=== PATIENT | female | born 1945 | race Caucasian/White ===

== ENCOUNTER 2016-12-23 18:13 | Inpatient (IN) | payer MEDICARE ==
[2016-12-23] VITALS (9 sets, daily range): BP systolic 113–148; BP diastolic 61–83; PULSE 85–108; RESP 20–44; O2SAT 81–100
[~2016-12-23] VITALS: Ht 160 cm; Wt 55.0 kg
[~2016-12-23 18:13] MED LIST: CALC-235 PO; DILT300C25 PO; DOCU-41 PO; FERR325C PO; FLEC100T2 PO; KEN25CR EXT; OXYB5TAB35 PO; OXYC5TAB72 PO; POLY17PO6 PO; TAMS0.4C29 PO; WARF5TAB7 PO; [UNRECOGNIZED DRUG - CODE] PO
[2016-12-23] MEDS ORDERED: Albuterol 2.5 mg/3 mL Inhalation Solution NEB ONE ×2 (18:25→22:25)
[2016-12-23] MEDS ORDERED: Albuterol-Ipratropium 3 mL Inhalation Solution NEB ONE (18:25)
--- NOTE | 2016-12-23 18:49 | ABG ---
DateTimeAnalyzed 18:45:00 -_ pH ____7.381 - 7.350 7.450 pCO2 ___46.2__ -mmHg 35.0 45.0 pO2 ___56.3__ -mmHg 69.0 116 HCO3- ___26.8__ -mmol/L 22.0 26.0 ABE ____1.8__ -mmol/L -2.0 2.0 tHb ___10.9__ -g/dL O2Hb ___86.8__ -% COHb ____1.9__ -% MetHb ____1.0__ -% sO2 ___89.4__ -% FIO2 ___28.0__ -% Drawn By LT - Date/Time Notified____ 18:49:00 -_ Notified By LT - Notified Whom ___DR. SLACK - B 763 -mmHg tO2 ___13.3__ -Vol% Catracho test _Positive -
[2016-12-23 18:50] LABS: BASOPHILS % (AUTO) 0.5 % (0-3); EOSINOPHILS % (AUTO) 0.3 % (0-5); MONOCYTES % (AUTO) 11.8 % (4-12); Mean Corpuscular Hemoglobin 26.3 pg (27.0-35.0); NEUTROPHILS % (AUTO) 65.3 % (40-74); Platelet Count 245 bil/L (150-400)
[2016-12-23 19:11] LABS: Magnesium 2.2 mg/dL (1.6-2.6)
--- NOTE | 2016-12-23 19:29 | DRSVH ---
PROCEDURE: X-RAY CHEST ONE VIEW, PORTABLE ([id number]) INDICATIONS: dyspnea TECHNIQUE: One view of the chest was acquired. COMPARISON: [facility], CR, XR CHEST 2VW, 07/26/2016, 14:47. [facility], C R, XR CHEST 1VW (PORTABLE), 02/08/2016, 18:48. FINDINGS: Surgical changes and devices: There is a cardiac pacemaker with lead expected position. There are bonilla rgical clips in the left breast. Lungs and pleura: Bilateral chronic interstitial prominence compatible with chronic interstitial kishor g disease or chronic CHF. There is more confluent left basilar opacity suggests superimposed right ba silar pneumonia. No pleural effusions or pneumothorax. Mediastinum: Mediastinal contours appear normal. Heart size is normal. Bones and chest wall: No suspicious bony lesions. Overlying soft tissues appear unremarkable. IMPRESSION: 1. Chronic interstitial lung disease or chronic CHF. 2. Possible superimposed right lower lobe pneumonia. Dictated by: Eliza Hayden M.D. on 12/23/2016 at 19:21 Approved by: Eliza Hayden M.D. on 12/23/2016 at 19:27
[2016-12-23 19:34] LABS: TROPONIN T < 0.010 ug/L (0.0-0.011)
--- NOTE | 2016-12-23 20:32 | ED.REPORT ---
HPI-Dyspnea / Wheezing Date of Service Dec 23, 2016 ED Provider: Zion Phelan MD The patient is a 71 year old female w/ a hx of COPD, CHF, HTN, valvular heart disease, and breast cancer who presents to the ED via EMS due to shortness of breath for the past week. She came to the ED today bc she "just couldn't breathe." She is on 2L O2 at home. O2 sats at 81% in triage. Pt negl use her nebulizer medication at home today. She currently denies chest pain, cold symptoms, and fever. The pt quit smoking one week ago. Dr. Lipscomb at [facility] is her PCP. She was admitted 08/24/16 for a pulmonary function test. Impression at the time was moderate obstructive airway disease without evidence for immediate response to inhaled bronchodilators. There is a severe degere of underlying emphysema. Nursing Notes Stated Complaint: DIFFICULTY BREATHING Chief Complaint: Respiratory Distress Nursing Notes Reviewed: Yes Allergies: Coded Allergies: metoprolol (Verified Allergy, Severe, Rash,Itching,, 12/23/16) Penicillins (Verified Allergy, Unknown, UNKNOWN, 12/23/16) Scheduled Calcium Carbonate/Vitamin D3 (Calcium 250+D Tablet) 1 Each Tablet 1 EACH PO DAILY Diltiazem ER (Cartia XT) 300 Mg Cap.er.24h 300 MG PO DAILY Ferrous Sulfate (Iron) 325 Mg Capsule.er 325 MG PO DAILY Flecainide Acetate (Flecainide Acetate) 100 Mg Tablet 100 MG PO Q12 Oxybutynin Chloride ER (Ditropan XL) 5 Mg Tab.er.24 10 MG PO DAILY Polyethylene Glycol 3350 (Miralax) 17 Gm Powd.pack 17 GM PO DAILY Risedronate (Actonel) 5 Mg Tablet 5 MG PO DAILY Take on empty stomach, remain upright for 1 hour after taking. Tamsulosin ER (Tamsulosin ER) 0.4 Mg Cap.er.24h 0.4 MG PO HS Triamcinolone Acet (Triamcinolone Acetonide Cream) 1 Applic/0.25 Gm Cr 1 APPLIC EXT BID Warfarin Sodium (Warfarin Sodium) 5 Mg Tablet 5 MG PO DAILY TAKE 5MG PO SATURDAY,,, SAT, AND SATURDAY Warfarin Sodium (Warfarin Sodium) 5 Mg Tablet 2.5 MG PO DAILY TAKE 2.5MG TWICE A WEEK ON SAT AND SATURDAY Scheduled PRN Docusate Sodium (Colace) 100 Mg Capsule 100 MG PO Q2DAY PRN PRN For Constipation oxyCODONE (oxyCODONE) 5 Mg Tablet 5-10 MG PO Q4H PRN PRN For Pain General Time Seen by MD: 18:22 Chief Complaint Shortness of breath Hx Obtained From: Patient Arrived By: Ambulance Sudden in Onset?: Yes Onset Occurred: Just prior to arrival Symptom Duration: Since onset Severity: Current: No pain currently Recent Healthcare: No recent doctor visit, No recent hospitalization Past Medical History Past Medical History CHF HTN Valvular heart disease COPD Breast cancer Rheumatoid Arthritis Reports: COPD, Cancer, Congestive heart failure, Hypertension Past Surgical History Hysterectomy Tonsillectomy Hemorrhoidectomy Reports: Hysterectomy, Tonsillectomy Reports: Pacemaker insertion Smoking History Current Every Day Smoker Social History Alcohol Use: Denies alcohol use Drug Use: Denies drug use Ambulatory Status Independent Review of Systems Respiratory: Reports: Non-productive cough, Shortness of breath Complete sys rev & neg: except as marked. Physical Exam Initial Vital Signs Vital Signs (First) Date Time Temp Pulse Resp B/P Pulse Ox O2 Delivery O2 Flow Rate FiO2 12/23/16 18:15 36.7 108 32 148/73 81 Room Air 12/23/16 18:58 2 Initial VS: Reviewed Extremities: Vascular intact, No swelling Psychiatric: Mood/affect normal General/Constitutional: Awake Neck: Atraumatic, Supple, Non-tender Respiratory / Chest: No rales Wheezing / Retractions: Positive: Wheezing mild decreased air movement throughout Cardiovascular: Heart rate NL, Regular rhythm, Heart sounds NL Interpretation & Diagnostics Interpretation & Diagnostics: ANGIOGRAPHY CT IMPRESSION: 1. No evidence for acute central pulmonary embolism. 2. Right lower lobe airspace disease consistent with pneumonia. 3. Severe centrilobular emphysema. 4. Suspect pulmonary fibrosis. 5. Mediastinal and right hilar lymphadenopathy. This finding is nonspecific and requires clinical correlation and follow up. 6. Exophytic nodules in left kidney. Recommend ultrasound to further characterize the anterior exophytic nodule which demonstrates higher CT density than simple cyst. 7. Small hiatal hernia. Dictated by: Eliza Hayden M.D. on 12/23/2016 at 20:31 Approved by: Eliza Hayden M.D. on 12/23/2016 at 20:45 Lab Results Interpretation Result Diagram: 3/19/182912/23/161829 Test 12/23/16 18:30 12/23/16 20:49 White Blood Count 9.8th/mm3 (3.8-10.1) Red Blood Count 4.38mil/mm3 (3.90-5.20) Hemoglobin 11.5g/dL (12.0-15.6) Hematocrit 36.8% (35.0-46.0) Mean Corpuscular Volume 84.0fL (81-100) Mean Corpuscular Hemoglobin 26.3pg (27.0-35.0) Mean Corpuscular Hemoglobin Concent 31.3% (32.0-37.0) Red Cell Distribution Width 18.2% (12.3-15.4) Platelet Count 245bil/L (150-400) Neutrophils (%) (Auto) 65.3% (40-74) Lymphocytes (%) (Auto) 21.6% (14-46) Monocytes (%) (Auto) 11.8% (4-12) Eosinophils (%) (Auto) 0.3% (0-5) Basophils (%) (Auto) 0.5% (0-3) Prothrombin Time 11.4sec (8.1-12.5) Prothromb Time International Ratio 1.06ratio D-Dimer 1.9mg/L (<0.50) Sodium Level 139mEq/L (134-144) Potassium Level 3.7mEq/L (3.5-5.2) Chloride Level 99mEq/L (97-108) Carbon Dioxide Level 24mmol/L (18-29) Blood Urea Nitrogen 17mg/dL (8-27) Creatinine 0.89mg/dL (0.57-1.00) Estimat Glomerular Filtration Rate 89mL/min (>59) Glucose Level 156mg/dL (60-99) Calcium Level 8.1mg/dL (8.5-10.1) Magnesium Level 2.2mg/dL (1.6-2.6) Total Bilirubin 0.6mg/dL (0.0-1.2) Aspartate Amino Transf (AST/SGOT) 20U/L (0-50) Alanine Aminotransferase (ALT/SGPT) 13U/L (0-32) Alkaline Phosphatase 93U/L (25-165) Troponin T < 0.010ug/L (0.0-0.011) Pro-B-Type Natriuretic Peptide 1010pg/mL (0-301) Total Protein 7.8g/dL (6.4-8.4) Albumin 3.2g/dL (3.4-5.0) Procalcitonin 0.15ng/mL (0.00-0.08) Hold Stephen Top Tube Received (Received) Lactic Acid Level 1.6mmol/L (0.4-2.0) Lab Results Interpretation: BLOOD GAS REPORT: pH....7.381 pCO2....46 pO2....56.3 cHCO3....26.8 cBase....37.0 ECG Interpretation Time: 18:30 Interpreted by: ED physician Normal ECG Interpretation: Normal rate (99), No acute ischemic changes X-Ray Chest Interpretation Chest Xray Interpretation: IMPRESSION: 1. Chronic interstitial lung disease or chronic CHF. 2. Possible superimposed right lower lobe pneumonia. Dictated by: Eliza Hayden M.D. on 12/23/2016 at 19:21 Approved by: Eliza Hayden M.D. on 12/23/2016 at 19:27 View: Portable Interpretation / Wet Read by: Interpret - Radiologist Re-Eval/Medical Decision Med Decision/Clinical Course 71 year old female on home O2 with dyspnea and hypoxemia. Unclear what her baseline O2 sats are, pt states not on constant home O2. Improved on oxygen, given duoneb and albuterol. Mild wheeze so steroids not started. Blood cultures obtained, IV levaquin started- no recent hospitalization. will admit to hospitalist Re-Evaluation/Progress : Time of Eval: 21:00 Patient Status: Mild relief Re-Evaluation/Progress Note: Pt rechecked. Informed of results of chest x-ray and angiography CT, diagnosis of dyspnea and pneumonia, and need for admission. Pt understands and agrees with plan. All questions addressed. Consultation : Referral / Consult Name: Fay Gongora DO Consulted With: Hospitalist Call Returned at: 20:50 Principal Developer: Accepts admit Note: Dr. Gongora agrees with plan. PCC in-patient. Counseled Regarding: Diagnosis, Lab results, Need for admission Discharge & Departure Impression: Primary Impression: Dyspnea Dyspnea type: unspecified Qualified Code: R06.00 - Dyspnea, unspecified Additional Impression: Pneumonia Pneumonia type: due to unspecified organism Laterality: unspecified laterality Lung location: unspecified part of lung Qualified Code: B99.9 - Unspecified infectious disease Disposition: ADMITTED TO HOSPITAL Discharge Condition All VS Reviewed: Yes Condition: Stable Referrals: [facility] Residency Clinic (PCP) Scribe Attestation Portion of this note were transcribed by Stephanie Ying. I, Dr. Phelan, personally performed the history, physical exam, and medical decision-making: I reviewed and confirmed the accuracy for the information in the transcribed note. Signed by: wolf Rodríguez, 12/23/16 2100 copies to: [facility] Residency [facility] Zion Phelan MD Dec 23, 2016 20:32 Stephanie Ying Dec 23, 2016 20:39
[2016-12-23] MEDS ORDERED: levoFLOXacin Inj 500 MG in IV Premix 1 EACH IV ONE (20:35)
--- NOTE | 2016-12-23 20:47 | DRSVH ---
PROCEDURE: CT ANGIO CHEST PULMONARY EMBOLISM ([id number]) INDICATIONS: dyspnea and hypoxemia TECHNIQUE: After the administration of intravenous contrast, 2 mm thick sections acquired from the pulmonary api rodri to the posterior costophrenic angles. 3-dimensional maximum intensity projection (MIP) coronal a nd sagittal reformats were then acquired through the thorax. For radiation dose reduction, the follo wing was used: automated exposure control, adjustment of mA and/or kV according to patient size. COMPARISON: [facility], CT, KUB - CT (PNL), 04/17/2008, 15:07. [facility], C T, CT PELVIS W CON, 10/17/2015, 15:43. [facility], CT, CT CHEST HIGH RESOLUTION, 08/24/20 16, 12:38. [facility], CR, XR CHEST 1VW (PORTABLE), 12/23/2016, 18:22. FINDINGS: Image quality: Excellent. Pulmonary arteries: Pulmonary arteries are normal in size, and demonstrate no intraluminal filling d efects to suggest central pulmonary embolism. Lungs and pleura: Severe centrilobular emphysema. There is right basilar airspace infiltrate and cons olidation consistent with pneumonia. Bilateral subpleural septal thickening and honeycombing suggests pulmonary fibrosis. No pleural effusions or pneumothorax. Central and peripheral airways are paten t. Mediastinum: Heart size is normal, without pericardial effusion. Enlarged mediastinal and right nery r lymph nodes are present. The largest lymph node is paretracheal measuring 1.6 x 1.9 cm. Thoracic a estefania is normal in caliber and enhancement. Esophagus is normal in caliber. There is a small hiatal h ernia. Bones and chest wall: No suspicious bony lesions. Ribs and thoracic spine appear intact throughout. Thyroid gland is normal. No axillary or supraclavicular adenopathy. Abdomen: Multiple exophytic nodules are seen in left kidney. The nodule in the posterior cortex demon strates CT density 5.5 HU, consistent with a cyst simple cyst. The nodule adjacent to the anterior co rtex demonstrates CT density 38 HU, which is higher than simple cyst. IMPRESSION: 1. No evidence for acute central pulmonary embolism. 2. Right lower lobe airspace disease consistent with pneumonia. 3. Severe centrilobular emphysema. 4. Suspect pulmonary fibrosis. 5. Mediastinal and right hilar lymphadenopathy. This finding is nonspecific and requires clinical co rrelation and follow up. 6. Exophytic nodules in left kidney. Recommend ultrasound to further characterize the anterior exophy tic nodule which demonstrates higher CT density than simple cyst. 7. Small hiatal hernia. Dictated by: Eliza Hayden M.D. on 12/23/2016 at 20:31 Approved by: Eliza Hayden M.D. on 12/23/2016 at 20:45
[2016-12-23] MEDS ORDERED: Alum-Mag Hydrox-Simeth 30 mL Suspension PO PRN (21:35)
[2016-12-23] MEDS ORDERED: Albuterol-Ipratropium 3 mL Inhalation Solution NEB PRN (21:35)
[2016-12-23] MEDS ORDERED: Polyethylene Glycol (PEG) 17 Gm Powder PO PRN (21:35)
[2016-12-23] MEDS ORDERED: HYDROcodone-APAP 5-325 mg Tablet PO PRN (21:35)
[2016-12-23] MEDS ORDERED: MethylprednisoLONE Sodium Succinate 62.5 mg/mL 2 mL Inj IVPUSH ONE (21:45)
[2016-12-23 22:09] LABS: INR 1.06 ratio
--- NOTE | 2016-12-23 23:01 | PCM.HPMED ---
Subjective Date of Service Dec 23, 2016 Primary Provider: Admitting Physician: Primary Care Physician: CARTER Johnson Residency Attending Physician: Admit Status: From the Emergency Department, [facility] Telemetry Chief Complaint: "I can't breathe." History of Present Illness: Ms. 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 She presents to the ED via EMS complaining of shortness of breath for 1.5 weeks. Patient reports that she could not breathe even on the O2 and her SOB has been progressively worsened. She admits to intermittent use of O2 at home and has been using an inhaler as needed with no symptom relief. She does not recall the name of the inhaler. Patient also complains of increasing loose cough, runny nose, mild/dull frontal headache, and decrease appetite. She states that there is sputum production but "I can't get it out." Otherwise, she denies chest pain, fever, chills, nausea, vomiting, diarrhea, or swelling. No sick contact recently. She got both the flu and pneumonia shots this year. Patient admits to the use of 2 pillows at night. She stopped smoking about 1 week ago. In the ED, she had O2 sat of 81% at room aire, but was afebrile. RR 32 and pulse 108. ABG with pH 7.38, pCO2 46.2, and pO2 56. EKG normal. Normal WBC, but procalcitonin 0.15. BNP 1010. D-dimer 1.[address] angio was done and ruled out pulmonary embolism. However, both CXR and CT are consistent with COPD and possible superimposed right lower lobe pneumonia. Of note, patient had a pulmonary function test on 08/24/16. Impression at the time was moderate obstructive airway disease without evidence for immediate response to inhaled bronchodilators. There is a severe degree of underlying emphysema. Patient states that she has not been admitted to the hospital for COPD for a few years. The last hospitalization was in 02/2016 for a broken hip. She has been using a walker to get around, but can ambulate independently without it. Review of Systems: Pertinent positives as noted in history of present illness. All other systems were reviewed and are negative. Allergies Coded Allergies: metoprolol (Verified Allergy, Severe, Rash,Itching,, 12/23/16) Penicillins (Verified Allergy, Unknown, UNKNOWN, 12/23/16) Home Medications Per [employer]: Medication Sig Comment calcium citrate-vitamin D3 200 mg calcium-250 unit tablet take one tab daily. Cardizem CD 300 mg capsule,extended release take 1 capsule by oral route every day . docusate sodium 100 mg capsule take 1 capsule by oral route every 2 days as needed for constipation flecainide 100 mg tablet take 1 tablet by oral route every 12 hours . hydroxychloroquine 200 mg tablet take 1 tablet by oral route every day iron ER 325 mg (65 mg iron) capsule,extended release take 1 tablet by oral route every day . Miralax 17 gram/dose Oral Powder take (17G) by oral route every day mixed with 8 oz. water, juice, soda, coffee or tea pt states uses PRN oxybutynin chloride ER 5 mg tablet,extended release 24 hr take 2 tablet by oral route every day oxycodone 5 mg tablet take 1 - 2 tablet by ORAL route every 4 hours as needed for pain risedronate 5 mg tablet take 1 tablet by oral route every day in the morning, at least 30 min before first food, beverage, or medication of day tamsulosin 0.4 mg capsule take 1 capsule by oral route every bedtime for bladder triamcinolone acetonide 0.1 % topical cream apply by topical route 2 times every day a thin layer to the affected area(s) for 2 wks then twice a wk as needed warfarin 5 mg tablet TAKE 1 TABLET BY MOUTH 5 DAYS/WEEK (SAT, SAT, , SAT, & SAT) & TAKE 1/2 TAB TWICE/WEEK (SAT & SAT) or as directed by coumadin clinic . Zyrtec 10 mg tablet take 1 tablet by oral route every day PMH 1. 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 2. Hypertension. 3. Paroxysmal atrial fibrillation with tachybrady syndrome requiring pacemaker implantation. 4. Rheumatoid arthritis. 5. Sleep apnea (noncompliant with CPAP therapy.) 6. Chronic iron-deficient anemia. 7. Congestive heart failure/tachycardia-induced cardiomyopathy. 8. Chronic anticoagulation with Coumadin. 9. Squamous cell carcinoma and Basal cell carcinoma of nose Surgical History Total abdominal hysterectomy, cholecystectomy, pacemaker implantation. Family History Denies significant family history. Reports that her mother in her sleep at 62yo. Unknown cause. Social History Hx Alcohol Use: No Hx Substance Use: No Hx Tobacco Use: Yes (1PPD/40 YEARS, was on 6-10 cigarettes/day as of last week. Quit 1 week ago.) Smoking Status: Current Every Day Smoker Living Arrangement: with Family (with son and [id number]. Local resident. ) Additional Information Uses 2L of O2 at baseline. Ambulate independently and uses a walker occasionally. Patient has a wheelchair at home since she broke her hip in 2015. Exam Vital Signs Vital Sign - Last Date Time Temp Pulse Resp B/P Pulse Ox O2 Delivery O2 Flow Rate FiO2 12/23/16 20:35 96 28 116/83 93 Nasal Cannula 2 12/23/16 18:15 36.7 Exam General: Chronically-ill appearance, thin, in respiratory distress with conversational dyspnea HEENT: Normocephalic, atraumatic. External ears without defect. Pupils equal, round, and reactive to light and accommodation. Anicteric sclerae, moist conjunctivae, and no lid lag. Moist oral mucosa. Neck: Supple with full range of motion. No jugular venous distension. No bruits. No lymphadenopathy or thyromegaly. Cardiovascular: Difficult to auscultate due to loud coarse lung sound. Regular rate and rhythm with no murmurs, rubs, or gallops appreciated Pulmonary: Decreased air movement throughout, coarse lung sound with moderate wheezing. Abdomen: Bowel tones present. Soft, nontender, nondistended. No hepatosplenomegaly or masses appreciated. Extremities: No clubbing, cyanosis, edema, or lymphadenopathy appreciated. Skin: Normal temperature, turgor, and texture; no rash, ulcers, or subcutaneous nodules appreciated. Neurological: Alert and oriented x 3. Cranial nerves grossly intact. Normal muscle strength and tone. Sensory function within normal limits. Lymph: no cervical or supraclavicular lymphadenopathy Psychiatric: Normal mood and affect. Alert and oriented to person, place, and time. Lab and Diagnostics Result Diagram: 12/23/16182912/23/161829 X-Rays, CTs and MRIs PROCEDURE: X-RAY CHEST ONE VIEW, PORTABLE IMPRESSION: 1. Chronic interstitial lung disease or chronic CHF. 2. Possible superimposed right lower lobe pneumonia. Dictated by: Eliza Hayden M.D. on 12/23/2016 at 19:21 Approved by: Eliza Hayden M.D. on 12/23/2016 at 19:27 PROCEDURE: CT ANGIO CHEST PULMONARY EMBOLISM IMPRESSION: 1. No evidence for acute central pulmonary embolism. 2. Right lower lobe airspace disease consistent with pneumonia. 3. Severe centrilobular emphysema. 4. Suspect pulmonary fibrosis. 5. Mediastinal and right hilar lymphadenopathy. This finding is nonspecific and requires clinical correlation and follow up. 6. Exophytic nodules in left kidney. Recommend ultrasound to further characterize the anterior exophytic nodule which demonstrates higher CT density than simple cyst. 7. Small hiatal hernia. Dictated by: Eliza Hayden M.D. on 12/23/2016 at 20:31 Approved by: Eliza Hayden M.D. on 12/23/2016 at 20:45 12-lead ECG Normal ECG Interpretation: Normal rate (99), No acute ischemic changes Assessment & Plan 71-year-old female with complex medical history including, but not limited to, COPD/emphysema secondary to lifelong history of ongoing smoking, paroxysmal atrial fibrillation with tachybrady syndrome requiring a pacemaker implantation , hypertension, rheumatoid arthritis, and congestive heart failure who presents to the ED via EMS complaining of shortness of breath. 1. Hypoxemia and hypercapnic respiratory failure, acute, present on admission, active. - Likely secondary to acute COPD exacerbation and possible right lower lobe pneumonia. - ABG showed increased pCO2 (46.2) and decreased pO2 (56). - Continue O2 supplementation to keep SpO2 90-93% - Treat the underlying cause(s) 2. Acute on chronic obstructive pulmonary disease/emphysema, present on admission, active. - Moderate-acute exacerbation with tachypnea, increased dyspnea and increased sputum volume. - Solu-Medro 125mg IV Q6H x 72 hours - Start Duo-Neb Q4H and Albuterol inhaler PRN - Start antibiotics as #3 3. Possible community-acquired pneumonia, acute, present on admission,active. - Both CXR and CT angio showed possible superimposed right lower lobe pneumonia. - Blood and sputum cultures pending. - Screen for Legionella and Strep Ag. Screen for MRSA. History of positive MRSA in the past. - Procalcitonin elevated at 0.15. Continue to trend. - Patient was given a dose of Levaquin in the ED. Will change to Ceftriaxone and Doxycycline for broader coverage. 4. Paroxysmal atrial fibrillation, chronic, stable. - current EKG shows sinus rhythm. Will place Telemetry. - continue outpatient medication to maintain rate control and sinus rhythm. - Cardizem 300 mg daily and Flecainide 100 mg bid - Last INR check was 2.0 on 12/17/16. - Check INR now and resume Warfarin dose per pharmacy. 5. Hypertension, chronic, stable. - elevation at admission likely related to respiratory distress. - Patient is not on antihypertensive medication as outpatient. - Will continue to monitor vital signs. 6. Congestive heart failure/tachycardia-induced cardiomyopathy, chronic, presume stable. - no signs of decompensation. - No recent Echo. Check Echo in the AM. 7. Rheumatoid arthritis, chronic, stable. - Hydroxychloroquine 200 mg tablet listed at home medication, but patient reports to stop taking it awhile ago. - No recent flare-up. 8. Nicotine Dependence with ongoing smoking - will provide Nicotine patch on patient's request 9. Abnormal CT, present on admission, unknown chronicity. - CT angio today 12/23/2016 showed Exophytic nodules in left kidney. Recommend ultrasound to further characterize the anterior exophytic nodule which demonstrates higher CT density than simple cyst. - Will defer to day to order an U/S or follow up as out patient. 10. CODE STATUS: FULL CODE per the patient. - Acetaminophen as needed for mild pain/fever/headache - Bowel regimen as needed - Antiemetic as needed Patient is admitted under inpatient status with expected length of stay greater than 2 midnights due to severity of presenting symptoms, risk of adverse event, and complexity of treatment plan. Pain Evaluation: Adequate Pain Control VTE Prophylaxis: Theraputic Anticoag with Warfarin, SCDs Resuscitation Status: CPR: Attempt Resuscitation Attending Statement The patient was seen and examined together with house staff on 12/24/2016 and I agree with the history, exam and plan as outlined in the note above. Mukesh Asif DO Dec 23, 2016 21:03 Fay Gongora DO Dec 24, 2016 01:17
--- NOTE | 2016-12-23 23:02 | NUR ---
Admission Patient admitted to [facility] 2028 at 2145. On arrival to floor patient's respiratory rate noted to be 44 with audible wheezes from across the room; SpO2 93% on 3L via nasal cannula. Patient with congested sounding cough, although she reports inability to produce any sputum; "It comes up to my throat and I can't get it out and it goes back down." States she has been coughing like this for the last week, with accompanying poor appetite. Dr. Gongora to bedside to assess; RT in room with nebulizer treatments. Patient with respiratory rate of 40 after second nebulizer dose. Up with standby assist to commode; small amount of dark colored, cloudy, odoriferous urine produced. Sample sent to lab. Continue close monitoring.
[2016-12-23 23:08] LABS: APPEARANCE,URINE SLIGHTLY CLOUDY (CLEAR,HAZY); COLOR,URINE DARK YELLOW (YELLOW)
[2016-12-23 23:09] LABS: OCCULT BLOOD,URINE SMALL (NEGATIVE)
[2016-12-23] MEDS ORDERED: 0.9% Sodium Chloride 250 ML ONE (23:14)
[2016-12-23] MEDS: cefTRIAXone Inj 2,000 MG in Dextrose 5% Minibag Plus 50 ML IV SCH (23:19)
[2016-12-24] VITALS (17 sets, daily range): BP systolic 112–127; BP diastolic 57–68; PULSE 8–124; RESP 20–36; O2SAT 90–94
[2016-12-24] MEDS ORDERED: RISEDRONATE 5 MG PO SCH
[2016-12-24] MEDS ORDERED: Albuterol 2.5 mg/3 mL Inhalation Solution NEB ONE (00:10)
[2016-12-24] MEDS: Albuterol-Ipratropium 3 mL Inhalation Solution NEB SCH ×6 (00:21→19:37)
[2016-12-24] MEDS ORDERED: Albuterol-Ipratropium 3 mL Inhalation Solution NEB SCH (00:30)
[2016-12-24] MEDS: Albuterol 2.5 mg/3 mL Inhalation Solution NEB PRN ×2 (01:54→06:02)
[2016-12-24] MEDS: MethylprednisoLONE Sodium Succinate 62.5 mg/mL 2 mL Inj IVPUSH SCH ×4 (02:39→20:32)
[2016-12-24 03:50] LABS: Mean Corpuscular Hemoglobin 26.5 pg (27.0-35.0); Mean Corpuscular Volume 83.5 fL (81-100); Platelet Count 264 bil/L (150-400)
[2016-12-24 04:09] LABS: BASOPHILS % (AUTO) 0.3 % (0-3); EOSINOPHILS % (AUTO) 0 % (0-5); MONOCYTES % (AUTO) 3.4 % (4-12); NEUTROPHILS % (AUTO) 89.7 % (40-74)
[2016-12-24] MEDS: Diltiazem CD 300 mg ER24 Capsule PO SCH ×2 (06:31)
[2016-12-24] MEDS: Doxycycline Inj 100 MG in Dextrose 5% Minibag Plus 100 ML IV SCH ×2 (08:04→20:32)
[2016-12-24] MEDS: Tolterodine ER 4 mg ER24 Capsule PO SCH (08:07)
[2016-12-24 08:23] LABS: INR 1.05 ratio
--- NOTE | 2016-12-24 11:51 | NUR ---
Evaluation completed. Please go to "Notes" then click on "Assessments and Notes" (bottom left corner of screen). Then select appropriate discipline tab on top of screen.
--- NOTE | 2016-12-24 17:43 | DRSVH ---
[facility] [address] [place] [address] Echocardiogram Report Name: JANET CRUZ Silvestre e: 12/24/2016 Height: 63 in Hospital Exam Location: [facility] Weight: 122 lb Gender: Female BSA: 1.6 m2 : 1945 Age: 71 yrs BP: 115/61 mmHg Reason For Study: Dyspnea Ordering Physician: HOSPITALIST [facility] Performed By: Gaby Rosenthal Referring Physician: CARLOS ALBERTO WHITLOCK Interpretation Summary 1. Normal left ventricular size, wall thickness and systolic function with an estimated EF of 60-65% 2. Normal right ventricular size and systolic function 3. No evidence for valvular pathology Compared to the previous study, no significant change Procedure: A two-dimensional transthoracic echocardiogram with color flow and Doppler was performed. The study quality was technically adequate. Comparison is made with the echocardiogram of 01/06/2015. The patient has a paced rhythm. Left Ventricle: The left ventricle is normal in size. There is normal left ventricular wall thickness. The ejection fraction is estimated to be 60-65%. No obvious wall motion abnormalities. Assessment of diastolic parameters indicates a relaxation abnormality of the left ventricle, consistent with normal filling pressures. Right Ventricle: The right ventricle is normal in size and function. There is a pacemaker lead in the right ventricle. Atria: Both atria are normal in size. Pacer lead in RA. There is no Doppler evidence for an interatrial shunt. Mitral Valve: The mitral valve leaflets appear thickened, but open well. There is no mitral regurgitation noted. Aortic Valve: The aortic valve is trileaflet. The aortic valve opens well. The aortic valve is slightly calcified. There is no aortic regurgitation. Tricuspid Valve: The tricuspid valve leaflets are thin and pliable. There is trace tricuspid regurgitation. The right ventricular systolic pressure is estimated at 48 mmHg assuming a right atrial pressure of 8 mm Hg. Pulmonic Valve: The pulmonic valve is not well visualized. There is no pulmonic valvular regurgitation. Great Vessels: The aortic root is normal size. The ascending aorta is normal in size. The aortic arch is normal in size. The pulmonary artery is not well visualized, but is probably normal size. The IVC is dilated (diameter is greater than 2.1 cm) yet it collapses greater than 50% with a sniff. This suggests a right atrial pressure of 8 mm Hg. Pericardium/ Pleura There is no pericardial effusion. There is no pleural effusion. MMode/2D Measurements & Calculations LVIDd: 4.6 cm LA dimension: 4.0 cm RA long axis AoV Opening LVIDs: 3.0 cm FS: 34.9 % LA A2 area: 17.3 cm RA area Ao root diam IVSd: 0.90 cm LA A4 area: 16.8 cm LVPWd: 0.93 cm LA length (vol) : 12.9 cm asc Aorta Diam RA vol LA vol: 48.1 ml : 27.4 ml Ao Arch Diam (Prox LA vol index RA Trans): 2.8 cm : 17.5 mm2 IVC diam: 2.1 cm LV merritt. diameter/BSA LV sys. diameter/BSA RVD1 (basal) RVD2 (mid): 2.0 cm (cm/m^2): 2.9 (cm/m^2): 1.9 Doppler Measurements & Calculations Ao V2 max MV E max jonathan MV E/A: 1.8 TR max jonathan : 189.2 cm/sec : 152.2 cm/sec Med Peak E' Jonathan : 314.4 cm/sec Ao max PG MV A max jonathan TR max PG : 14.3 mmHg : 82.6 cm/sec E/E' med: 13.1 : 39.5 mmHg Ao mean PG MV P1/2t: 51.5 msec Lat Peak E' Jonathan PA V2 max : 7.5 mmHg : 164.6 cm/sec E/E' lat: 12.3 PA mean PG E/e' average: 12.7 MV A dur: 0.13 sec PA Accel Time : 0.14 sec MV dec time MV P1/2t max jonathan Ao V2 mean PA V2 mean : 0.17 sec : 128.2 cm/sec : 114.2 cm/sec Ao V2 VTI: 31.9 cm MVA(P1/2t): 4.3 cm2 Reading Physician:05:42 PM
--- NOTE | 2016-12-24 18:31 | NUR ---
Cardiac/Respiratory finishing technician reported pt having increased bursts of SVT into 180s from shift change to approximately 0830. Pt baseline rate was SR 120s. Pt was administered her flecainide at approximately 0800. Tele for the rest of day demonstrated a decrease in overall heart rate with HR SR 90-100s, with infrequent episodes of SVT to a rate of 120-140s with pt activity. Pt states she is able to cough more effectively after breathing treatments today. But she is still having hard time moving secretions. States that her breathing is much better, no dyspnea at rest.
--- NOTE | 2016-12-24 20:39 | NUR ---
Flomax Pt declined HS dose of Flomax. States she's stopped taking at home as it "hasn't been doing me any good. Encouraged her to discuss this with .
--- NOTE | 2016-12-24 21:01 | PCM.PNMED ---
Subjective Date of Service Dec 24, 2016 Subjective overnight: Tachypnea improved overnight no acute events otherwise noted Today: Patient states that her breathing feels much improved and she attributes this to the medication she has been started on. The patient states that she has had a cough which she feels too weak to bring up any sputum. The patient denies any ongoing fevers or chills. She states that she uses chronic oxygen at home at approximately 2 L but it is infrequent she also uses her albuterol inhaler. Exam Vital Signs Vital Sign - Last Date Time Temp Pulse Resp B/P Pulse Ox O2 Delivery O2 Flow Rate FiO2 12/24/16 06:03 118 32 90 Nasal Cannula 2.00 12/24/16 04:21 115/61 12/24/16 02:42 36.8 Intake and Output 12/23/16 12/23/16 12/24/16 Cumulative From/Thru 15:00 23:00 07:00 12/23/16 18:15 - 12/24/16 06:42 Intake Total 633 ml 633 ml Output Total 50 ml 50 ml Balance 583 ml 583 ml Intake Oral 540 ml 540 ml IV Total 93 ml 93 ml Output Urine Total 50 ml 50 ml # Voids 1 1 Exam General: Chronically-ill appearance, thin, in respiratory distress with mild conversational dyspnea\ Eyes: Pupils equal round and reactive to light, anicteric sclera, noninjected conjunctiva HEENT: Normocephalic, atraumatic. External ears without defect. Moist oral mucosa with no central cyanosis Neck: Supple with full range of motion. No jugular venous distension. No bruits. No lymphadenopathy or thyromegaly. Cardiovascular: Distant heart sounds with Regular rate and rhythm with no murmurs, rubs, or gallops appreciated Pulmonary: Decreased air movement throughout significantly worse than right middle and lower lobes, coarse lung sound with moderate wheezing throughout all lung toscano. Abdomen: Bowel tones present. Soft, nontender, nondistended. No hepatosplenomegaly or masses appreciated. Extremities: No clubbing, cyanosis, edema, or lymphadenopathy appreciated. Skin: Normal temperature, turgor, and texture; no rash, ulcers, or subcutaneous nodules appreciated. Neurological: Alert and oriented x 3. Cranial nerves grossly intact. Normal muscle strength and tone. Sensory function within normal limits. Lymph: no cervical or supraclavicular lymphadenopathy Psychiatric: Normal mood and affect. Alert and oriented to person, place, and time. : No Javier in place Lab and Diagnostics Result Diagram: 12/24/16 03412/24/16 034 X-Rays, CTs and MRIs PROCEDURE: X-RAY CHEST ONE VIEW, PORTABLE IMPRESSION: 1. Chronic interstitial lung disease or chronic CHF. 2. Possible superimposed right lower lobe pneumonia. Dictated by: Eliza Hayden M.D. on 12/23/2016 at 19:21 Approved by: Eliza Hayden M.D. on 12/23/2016 at 19:27 PROCEDURE: CT ANGIO CHEST PULMONARY EMBOLISM IMPRESSION: 1. No evidence for acute central pulmonary embolism. 2. Right lower lobe airspace disease consistent with pneumonia. 3. Severe centrilobular emphysema. 4. Suspect pulmonary fibrosis. 5. Mediastinal and right hilar lymphadenopathy. This finding is nonspecific and requires clinical correlation and follow up. 6. Exophytic nodules in left kidney. Recommend ultrasound to further characterize the anterior exophytic nodule which demonstrates higher CT density than simple cyst. 7. Small hiatal hernia. Dictated by: Eliza Hayden M.D. on 12/23/2016 at 20:31 Approved by: Eliza Hayden M.D. on 12/23/2016 at 20:45 12-lead ECG Normal ECG Interpretation: Normal rate (99), No acute ischemic changes Additional Diagnostics Echocardiogram Report Interpretation Summary 1. Normal left ventricular size, wall thickness and systolic function with an estimated EF of 60-65% 2. Normal right ventricular size and systolic function 3. 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 Hospital day 1 1. Hypoxemia and hypercapnic respiratory failure, acute, present on admission, active. - Likely secondary to acute COPD exacerbation and possible right lower lobe pneumonia. - ABG showed increased pCO2 (46.2) and decreased pO2 (56). - Continue O2 supplementation to keep SpO2 90-93% - Treat the underlying cause(s) 2. Acute on chronic obstructive pulmonary disease/emphysema, present on admission, active. - Moderate-acute exacerbation with tachypnea, increased dyspnea and increased sputum volume. - Solu-Medro 125mg IV Q6H x 72 hours - Start Duo-Neb Q4H and Albuterol inhaler PRN - Start antibiotics as #3 3. Possible community-acquired pneumonia, acute, present on admission,active. - Both CXR and CT angio showed possible superimposed right lower lobe pneumonia. - Blood and sputum cultures pending. - Viral nasal PCR ordered and pending - Screen for Legionella and Strep Ag both negative. Screen for MRSA negative. - Procalcitonin elevated at 0.15. Continue to trend. - Patient was given a dose of Levaquin in the ED. changed to Ceftriaxone and admission - discontinue Doxycycline and initiate azithromycin for atypical coverage. 4. Paroxysmal atrial fibrillation, chronic, stable. - current EKG shows sinus rhythm. Will place Telemetry. - continue outpatient medication to maintain rate control and sinus rhythm. - Cardizem 300 mg daily and Flecainide 100 mg bid - Last INR check was 2.0 on 12/17/16, repeat INRs drawn today show non- therapeutic - Patient states that she is not taking warfarin at least the last 3 days - Check INR now and resume Warfarin dose per pharmacy. 5. Hypertension, chronic, stable. Present admission - elevation at admission likely related to respiratory distress. - Patient is not on antihypertensive medication as outpatient. - Will continue to monitor vital signs. 6. Congestive heart failure/tachycardia-induced cardiomyopathy, chronic, presume stable. - no signs of decompensation. - Echo performed today shows EF of normal 7. Rheumatoid arthritis, chronic, stable. - Hydroxychloroquine 200 mg tablet listed at home medication, but patient reports to stop taking it awhile ago. - No recent flare-up. 8. Nicotine Dependence with ongoing smoking - will provide Nicotine patch on patient's request 9. Abnormal CT, present on admission, unknown chronicity. - CT angio today 12/23/2016 showed Exophytic nodules in left kidney. Recommend ultrasound to further characterize the anterior exophytic nodule which demonstrates higher CT density than simple cyst. - Will defer to day to order an U/S or follow up as out patient. 10. CODE STATUS: FULL CODE per the patient. - Acetaminophen as needed for mild pain/fever/headache - Bowel regimen as needed - Antiemetic as needed Disposition: Patient will likely remain inpatient for her next 2 days discharge requiring physical therapy evaluation for placement. VTE Prophylaxis: Theraputic Anticoag with Warfarin, SCDs Resuscitation Status: CPR: Attempt Resuscitation Attending Statement The patient was seen and examined together with Dr. Martin on 12/24/2016 and I agree with the history, exam and plan as outlined in the note above. . Hernan Martin DO Dec 24, 2016 07:50 Tin Dawson MD Dec 29, 2016 07:48
--- NOTE | 2016-12-24 21:10 | NUR ---
Swab Viral PCR swab sent. Still need sputum sample. Pt states she hasn't been able to cough anything up yet.
[2016-12-24] MEDS: cefTRIAXone Inj 2,000 MG in Dextrose 5% Minibag Plus 50 ML IV SCH (22:45)
[2016-12-25] VITALS (8 sets, daily range): BP systolic 105–121; BP diastolic 62–67; PULSE 85–98; RESP 16–24; O2SAT 91–94
[2016-12-25] MEDS: Albuterol-Ipratropium 3 mL Inhalation Solution NEB SCH ×4 (00:15→12:08)
[2016-12-25] MEDS: MethylprednisoLONE Sodium Succinate 62.5 mg/mL 2 mL Inj IVPUSH SCH ×3 (03:30→09:05)
[2016-12-25 03:51] LABS: BASOPHILS % (AUTO) 0.1 % (0-3); EOSINOPHILS % (AUTO) 0 % (0-5); MONOCYTES % (AUTO) 4.7 % (4-12); Mean Corpuscular Hemoglobin 25.9 pg (27.0-35.0); Mean Corpuscular Volume 82.3 fL (81-100); NEUTROPHILS % (AUTO) 88.7 % (40-74); Platelet Count 269 bil/L (150-400)
[2016-12-25 04:01] LABS: INR 1.16 ratio
--- NOTE | 2016-12-25 05:21 | NUR ---
WBC WBC increased from 7.8 to 24.9. MD notified. No new orders at this time. Pt VSS and lactic acid has decreased.
[2016-12-25] MEDS: Tolterodine ER 4 mg ER24 Capsule PO SCH (08:30)
[2016-12-25] MEDS: Diltiazem CD 300 mg ER24 Capsule PO SCH (09:06)
[2016-12-25] MEDS ORDERED: PRE20 PO (12:00)
[2016-12-25] MEDS ORDERED: ATRINH INH (12:00)
[2016-12-25] MEDS ORDERED: CEFD300C3 PO (12:00)
[2016-12-25] MEDS ORDERED: SACC250C PO (12:00)
[2016-12-25] MEDS ORDERED: ZIT250 PO (12:00)
--- NOTE | 2016-12-25 12:05 | PCM.DIMED ---
Hernan Martin DO 12/25/16 1205: Discharge Instructions Date of Service Dec 25, 2016 Dates of Hospitalization Dec 23, 2016 at 21:26 Discharge Diagnosis Discharge Diagnosis 1. Hypoxemia and hypercapnic respiratory failure 2. Acute on chronic obstructive pulmonary disease/emphysema 3. Possible community-acquired pneumonia 4. Paroxysmal atrial fibrillation 5. Hypertension 6. Congestive heart failure/tachycardia-induced cardiomyopathy 7. Rheumatoid arthritis 8. Nicotine Dependence 9. Abnormal CT showed Exophytic nodules in left kidney Medication Instructions Included his prescriptions for prednisone, azithromycin, Cefdinir. Please take all these medications to completion as directed. You have also been given a prescription for probiotic please take this medication as you are on several antibiotics which will kill off for a predisposing you to possible infectious diarrhea You have been given a prescription for an ipratropium inhaler please take this medication twice daily for the next month. Also included his a prescription for refill on her albuterol inhaler please take this medication for shortness of breath as directed. Please continue to take all of her regular home medications as directed by her primary care provider. Diet Low fat, Low Sodium Activity No restrictions Call your provider Fever or Chills, Shortness of breath, Bleeding, Chest pain, Vomitting, Excessive diarrhea, Weakness (unilateral) Patient Instructions Please take all of her medications as directed. If you feel like her symptoms are not improving or if you are worsening at all with new return of fevers and chills worsening cough please be evaluated by a medical professional. Follow-up plan Please follow up with her primary care provider later this week. The appointment has already been scheduled. Follow-up Provider: Omayra Willis DO Follow-up with PCP in: 1 week Tin Dawson MD 12/29/16 0749: Discharge Instructions Attending's Statement The patient was seen and examined together with Dr. Martin on 12/25/2016 and I agree with the history, exam and plan as outlined in the note above. . Hernan Martin DO Dec 25, 2016 12:05 Tin Dawson MD Dec 29, 2016 07:49
--- NOTE | 2016-12-25 12:05 | NUR ---
Social Work Note: Initial Assessment/Discharge Data& Assessment: Per pt is medically ready for discharge. SW met with pt at bedside to discuss discharge planning and assess for any unmet needs. Chiara Rg is a 71 year old female admitted on 12/23/2016 for dyspnea and pneumonia. Per pt is medically improved and ready to discharge home via POV. PT has cleared pt to go home as she is back to her baseline. Pt has [employer] Medicare insurance coverage and [facility]. Pt lives in [place] with her son and daughter in law. Pt is independent at baseline with all ADL's. Pt broke her hip last year and so she does own a cane and a walker but does not need them at this time. Pt has had a HH and SNF hx from her hip fracture last year but does not remember which company or facility. Pt does not have VA or LTC insurance. Pt provided with DPOA/Advance Directive paperwork to review and complete when possible. Pt son transporting her home today. Pt denies any other needs. No other discharge needs identified. Plan: Per pt is medically ready to discharge home via POV. Pt denies any other needs. No other discharge needs identified. CALEB Amos Addendum: 12/25/16 at 1210 by ONEYDA LEDEZMA Amended: Links added.
[2016-12-25] MEDS ORDERED: ALBU8.5H2 INHALATION (12:06)
--- NOTE | 2016-12-25 13:45 | PCM.PNMED ---
Subjective Date of Service Dec 25, 2016 Subjective overnight: WBC increased from 7.8 to 24.9 consistent with possible infection as well as steroid burst. Patient remained afebrile. No acute events otherwise noted. Today: Patient states that she is ready to go home. She has a son at home who is capable of taking care of her. She understands that she needs to get 2 separate antibiotics as well as a prescription for steroids and prescriptions for inhalers. The plan will be to go home with probiotics. Exam Vital Signs Vital Sign - Last Date Time Temp Pulse Resp B/P Pulse Ox O2 Delivery O2 Flow Rate FiO2 12/25/16 07:54 94 94 Nasal Cannula 2.00 12/25/16 03:32 16 121/67 12/24/16 22:47 36.8 Intake and Output 12/24/16 12/24/16 12/25/16 Cumulative From/Thru 15:00 23:00 07:00 12/23/16 18:15 - 12/25/16 06:11 Intake Total 1118 ml 360 ml 2111 ml Output Total 500 ml 300 ml 850 ml Balance 618 ml 60 ml 1261 ml Intake Oral 980 ml 200 ml 1720 ml IV Total 138 ml 160 ml 391 ml Output Urine Total 500 ml 300 ml 850 ml # Voids 1 # Bowel Movements 0 0 Exam General: Chronically-ill appearance, thin, in respiratory distress with mild conversational dyspnea\ Eyes: Pupils equal round and reactive to light, anicteric sclera, noninjected conjunctiva HEENT: Normocephalic, atraumatic. External ears without defect. Moist oral mucosa with no central cyanosis Neck: Supple with full range of motion. No jugular venous distension. No bruits. No lymphadenopathy or thyromegaly. Cardiovascular: Distant heart sounds with Regular rate and rhythm with no murmurs, rubs, or gallops appreciated Pulmonary: Decreased air movement throughout significantly worse than right middle and lower lobes, improved breath sounds mild coarse breath sounds noted right axillary and left base with moderate mild intermittent wheezing throughout all lung toscano. Significantly improved from day prior Abdomen: Bowel tones present. Soft, nontender, nondistended. No hepatosplenomegaly or masses appreciated. Extremities: No clubbing, cyanosis, edema, or lymphadenopathy appreciated. Skin: Normal temperature, turgor, and texture; no rash, ulcers, or subcutaneous nodules appreciated. Neurological: Alert and oriented x 3. Cranial nerves grossly intact. Normal muscle strength and tone. Sensory function within normal limits. Lymph: no cervical or supraclavicular lymphadenopathy Psychiatric: Normal mood and affect. Alert and oriented to person, place, and time. : No Javier in place Lab and Diagnostics Result Diagram: 12/25/1633412/25/16334 X-Rays, CTs and MRIs PROCEDURE: X-RAY CHEST ONE VIEW, PORTABLE IMPRESSION: 1. Chronic interstitial lung disease or chronic CHF. 2. Possible superimposed right lower lobe pneumonia. Dictated by: Eliza Hayden M.D. on 12/23/2016 at 19:21 Approved by: Eliza Hayden M.D. on 12/23/2016 at 19:27 PROCEDURE: CT ANGIO CHEST PULMONARY EMBOLISM IMPRESSION: 1. No evidence for acute central pulmonary embolism. 2. Right lower lobe airspace disease consistent with pneumonia. 3. Severe centrilobular emphysema. 4. Suspect pulmonary fibrosis. 5. Mediastinal and right hilar lymphadenopathy. This finding is nonspecific and requires clinical correlation and follow up. 6. Exophytic nodules in left kidney. Recommend ultrasound to further characterize the anterior exophytic nodule which demonstrates higher CT density than simple cyst. 7. Small hiatal hernia. Dictated by: Eliza Hayden M.D. on 12/23/2016 at 20:31 Approved by: Eliza Hayden M.D. on 12/23/2016 at 20:45 12-lead ECG Normal ECG Interpretation: Normal rate (99), No acute ischemic changes Additional Diagnostics Echocardiogram Report Interpretation Summary 1. Normal left ventricular size, wall thickness and systolic function with an estimated EF of 60-65% 2. Normal right ventricular size and systolic function 3. 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 Hospital day 1 1. Hypoxemia and hypercapnic respiratory failure, acute, present on admission, active. - Likely secondary to acute COPD exacerbation and possible right lower lobe pneumonia. - ABG showed increased pCO2 (46.2) and decreased pO2 (56). - Continue O2 supplementation to keep SpO2 90-93% - Treat the underlying cause(s) 2. Acute on chronic obstructive pulmonary disease/emphysema, present on admission, active. - Moderate-acute exacerbation with tachypnea, increased dyspnea and increased sputum volume. - Solu-Medro 125mg IV Q6H x 72 hours - Start Duo-Neb Q4H and Albuterol inhaler PRN - Start antibiotics as #3 - Patient discharged with prednisone 40 mg for 5 days - Patient discharged with prescription for ipratropium inhaler scheduled twice daily as well as albuterol inhaler for when necessary shortness of breath 3. Possible community-acquired pneumonia, acute, present on admission,active. - Both CXR and CT angio showed possible superimposed right lower lobe pneumonia. - Blood and sputum cultures pending. - Viral nasal PCR ordered and pending - Screen for Legionella and Strep Ag both negative. Screen for MRSA negative. - Procalcitonin elevated at 0.15. Continue to trend. - Patient was given a dose of Levaquin in the ED. changed to Ceftriaxone and admission - discontinue Doxycycline and initiate azithromycin for atypical coverage. - To be discharged on Omnicef for an additional 5 days, and azithromycin for an additional 5 days 4. Paroxysmal atrial fibrillation, chronic, stable. - current EKG shows sinus rhythm. Will place Telemetry. - continue outpatient medication to maintain rate control and sinus rhythm. - Cardizem 300 mg daily and Flecainide 100 mg bid - Last INR check was 2.0 on 12/17/16, repeat INRs drawn today show non- therapeutic - Patient states that she is not taking warfarin at least the last 3 days - Check INR now and resume Warfarin dose as an outpatient 5. Hypertension, chronic, stable. Present admission - elevation at admission likely related to respiratory distress. - Patient is not on antihypertensive medication as outpatient. - Will continue to monitor vital signs. 6. Congestive heart failure/tachycardia-induced cardiomyopathy, chronic, presume stable. - no signs of decompensation. - Echo performed today shows EF of normal 7. Rheumatoid arthritis, chronic, stable. - Hydroxychloroquine 200 mg tablet listed at home medication, but patient reports to stop taking it awhile ago. - No recent flare-up. 8. Nicotine Dependence with ongoing smoking - Nicotine patch available on patient's request 9. Abnormal CT, present on admission, unknown chronicity. - CT angio today 12/23/2016 showed Exophytic nodules in left kidney. Recommend ultrasound to further characterize the anterior exophytic nodule which demonstrates higher CT density than simple cyst. - Will defer to day to order an U/S or follow up as out patient. Disposition: Patient to be discharged home today VTE Prophylaxis: Theraputic Anticoag with Warfarin, SCDs Resuscitation Status: CPR: Attempt Resuscitation Attending Statement The patient was seen and examined together with Dr. Martin on 12/25/2016 and I agree with the history, exam and plan as outlined in the note above. . Hernan Martin DO Dec 25, 2016 08:14 Tin Dawson MD Dec 29, 2016 07:49
--- NOTE | 2016-12-25 14:15 | PCM.DC.MED ---
Discharge Summary Date of Service Dec 25, 2016 Dates of Hospitalization Date of Hospital Admission Dec 23, 2016 at 21:26 Date of Discharge: Dec 25, 2016 Providers: Admitting Physician: Fay Gongora DO [facility]: Fay Gongora DO Diagnosis at Time of Discharge Diagnosis at Time of Discharge 1. Hypoxemia and hypercapnic respiratory failure 2. Acute on chronic obstructive pulmonary disease/emphysema 3. Possible community-acquired pneumonia 4. Paroxysmal atrial fibrillation 5. Hypertension 6. Congestive heart failure/tachycardia-induced cardiomyopathy 7. Rheumatoid arthritis 8. Nicotine Dependence 9. Abnormal CT showed Exophytic nodules in left kidney Procedures XRay, CTs & MRIs PROCEDURE: X-RAY CHEST ONE VIEW, PORTABLE IMPRESSION: 1. Chronic interstitial lung disease or chronic CHF. 2. Possible superimposed right lower lobe pneumonia. Dictated by: Eliza Hayden M.D. on 12/23/2016 at 19:21 Approved by: Eliza Hayden M.D. on 12/23/2016 at 19:27 PROCEDURE: CT ANGIO CHEST PULMONARY EMBOLISM IMPRESSION: 1. No evidence for acute central pulmonary embolism. 2. Right lower lobe airspace disease consistent with pneumonia. 3. Severe centrilobular emphysema. 4. Suspect pulmonary fibrosis. 5. Mediastinal and right hilar lymphadenopathy. This finding is nonspecific and requires clinical correlation and follow up. 6. Exophytic nodules in left kidney. Recommend ultrasound to further characterize the anterior exophytic nodule which demonstrates higher CT density than simple cyst. 7. Small hiatal hernia. Dictated by: Eliza Hayden M.D. on 12/23/2016 at 20:31 Approved by: Eliza Hayden M.D. on 12/23/2016 at 20:45 ECG 12 Lead Normal ECG Interpretation: Normal rate (99), No acute ischemic changes Other Diagnostics Echocardiogram Report Interpretation Summary 1. Normal left ventricular size, wall thickness and systolic function with an estimated EF of 60-65% 2. Normal right ventricular size and systolic function 3. No evidence for valvular pathology Compared to the previous study, no significant change Reading Physician:05:42 PM Brief History From the H&P of by Mukesh Asif DO "Ms. 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 She presents to the ED via EMS complaining of shortness of breath for 1.5 weeks. Patient reports that she could not breathe even on the O2 and her SOB has been progressively worsened. She admits to intermittent use of O2 at home and has been using an inhaler as needed with no symptom relief. She does not recall the name of the inhaler. Patient also complains of increasing loose cough, runny nose, mild/dull frontal headache, and decrease appetite. She states that there is sputum production but "I can't get it out." Otherwise, she denies chest pain, fever, chills, nausea, vomiting, diarrhea, or swelling. No sick contact recently. She got both the flu and pneumonia shots this year. Patient admits to the use of 2 pillows at night. She stopped smoking about 1 week ago. In the ED, she had O2 sat of 81% at room aire, but was afebrile. RR 32 and pulse 108. ABG with pH 7.38, pCO2 46.2, and pO2 56. EKG normal. Normal WBC, but procalcitonin 0.15. BNP 1010. D-dimer 1.[address] angio was done and ruled out pulmonary embolism. However, both CXR and CT are consistent with COPD and possible superimposed right lower lobe pneumonia. Of note, patient had a pulmonary function test on 08/24/16. Impression at the time was moderate obstructive airway disease without evidence for immediate response to inhaled bronchodilators. There is a severe degree of underlying emphysema. Patient states that she has not been admitted to the hospital for COPD for a few years. The last hospitalization was in 02/2016 for a broken hip. She has been using a walker to get around, but can ambulate independently without it." Hospital Course 1. Hypoxemia and hypercapnic respiratory failure, acute, present on admission, active. - Likely secondary to acute COPD exacerbation and possible right lower lobe pneumonia. - ABG showed increased pCO2 (46.2) and decreased pO2 (56). - Continue O2 supplementation to keep SpO2 90-93% - Treat the underlying cause(s) 2. Acute on chronic obstructive pulmonary disease/emphysema, present on admission, active. - Moderate-acute exacerbation with tachypnea, increased dyspnea and increased sputum volume. - Solu-Medro 125mg IV Q6H x 72 hours - Start Duo-Neb Q4H and Albuterol inhaler PRN - Start antibiotics as #3 - Patient discharged with prednisone 40 mg for 5 days - Patient discharged with prescription for ipratropium inhaler scheduled twice daily as well as albuterol inhaler for when necessary shortness of breath 3. Possible community-acquired pneumonia, acute, present on admission,active. - Both CXR and CT angio showed possible superimposed right lower lobe pneumonia. - Blood and sputum cultures pending. - Viral nasal PCR ordered and pending - Screen for Legionella and Strep Ag both negative. Screen for MRSA negative. - Procalcitonin elevated at 0.15. Continue to trend. - Patient was given a dose of Levaquin in the ED. changed to Ceftriaxone and admission - discontinue Doxycycline and initiate azithromycin for atypical coverage. - To be discharged on Omnicef for an additional 5 days, and azithromycin for an additional 5 days 4. Paroxysmal atrial fibrillation, chronic, stable. - current EKG shows sinus rhythm. Will place Telemetry. - continue outpatient medication to maintain rate control and sinus rhythm. - Cardizem 300 mg daily and Flecainide 100 mg bid - Last INR check was 2.0 on 12/17/16, repeat INRs drawn today show non- therapeutic - Patient states that she is not taking warfarin at least the last 3 days - Check INR now and resume Warfarin dose as an outpatient 5. Hypertension, chronic, stable. Present admission - elevation at admission likely related to respiratory distress. - Patient is not on antihypertensive medication as outpatient. - Will continue to monitor vital signs. 6. Congestive heart failure/tachycardia-induced cardiomyopathy, chronic, presume stable. - no signs of decompensation. - Echo performed today shows EF of normal 7. Rheumatoid arthritis, chronic, stable. - Hydroxychloroquine 200 mg tablet listed at home medication, but patient reports to stop taking it awhile ago. - No recent flare-up. 8. Nicotine Dependence with ongoing smoking - Nicotine patch available on patient's request 9. Abnormal CT, present on admission, unknown chronicity. - CT angio today 12/23/2016 showed Exophytic nodules in left kidney. Recommend ultrasound to further characterize the anterior exophytic nodule which demonstrates higher CT density than simple cyst. - Will defer to day to order an U/S or follow up as out patient. Exam Vital Signs (Last) Date Time Temp Pulse Resp B/P Pulse Ox O2 Delivery O2 Flow Rate FiO2 12/25/16 13:37 36.6 92 18 108/65 94 Nasal Cannula 2.00 Exam General: Chronically-ill appearance, thin, in respiratory distress with mild conversational dyspnea\\ Eyes: Pupils equal round and reactive to light, anicteric sclera, noninjected conjunctiva HEENT: Normocephalic, atraumatic. External ears without defect. Moist oral mucosa with no central cyanosis Neck: Supple with full range of motion. No jugular venous distension. No bruits. No lymphadenopathy or thyromegaly. Cardiovascular: Distant heart sounds with Regular rate and rhythm with no murmurs, rubs, or gallops appreciated Pulmonary: Decreased air movement throughout significantly worse than right middle and lower lobes, improved breath sounds mild coarse breath sounds noted right axillary and left base with moderate mild intermittent wheezing throughout all lung toscano. Significantly improved from day prior Abdomen: Bowel tones present. Soft, nontender, nondistended. No hepatosplenomegaly or masses appreciated. Extremities: No clubbing, cyanosis, edema, or lymphadenopathy appreciated. Skin: Normal temperature, turgor, and texture; no rash, ulcers, or subcutaneous nodules appreciated. Neurological: Alert and oriented x 3. Cranial nerves grossly intact. Normal muscle strength and tone. Sensory function within normal limits. Lymph: no cervical or supraclavicular lymphadenopathy Psychiatric: Normal mood and affect. Alert and oriented to person, place, and time. : No Javier in place Test 12/23/16 18:30 12/23/16 22:50 12/24/16 03:40 12/25/16 03:35 D-Dimer 1.9mg/L (<0.50) Troponin T < 0.010ug/L (0.0-0.011) Pro-B-Type Natriuretic Peptide 1010pg/mL (0-301) Hold Stephen Top Tube Received (Received) Urine Color Dark yellow (YELLOW) Urine Appearance Slightly cloudy Urine pH 5.0 (5.0-8.0) Urine Specific [place] 1.010 (1.003-1.035) Urine Protein 30mg/dL (NEG,TRACE) Urine Glucose (UA) Negativemg/dL (NEGATIVE) Urine Ketones Negativemg/dL (NEGATIVE) Urine Occult Blood Small (NEGATIVE) Urine Nitrite Positive (NEGATIVE) Urine Bilirubin Negative (NEGATIVE) Urine Urobilinogen 2.0mg/dL (NORMAL) Urine Leukocyte Esterase Small (NEGATIVE) Urine RBC 0-2/hpf (0-2) Urine WBC >50/hpf (0-5) Urine Epithelial Cells Few/hpf (NONE-MOD) Urine Crystals None seen (NONE SEEN) Urine Bacteria Many/hpf (NONE-FEW) Urine Hyaline Casts None/lpf (NONE) Urine Granular Casts None seen (NONE SEEN) Urine Waxy Casts None seen (NONE SEEN) Urine Red Blood Cell Casts None seen (NONE SEEN) Urine White Blood Cell Casts None seen (NONE SEEN) Urine Mucus None seen (None Seen) Urine Trichomonas None seen (NONE SEEN) Urine Yeast None (NONE SEEN) Urinalysis Comment None Urine Culture Reflexed Indicated Urine Legionella pneumophilia Ag Negative (Negative) Band Neutrophils % 1% (1-5) Hemoglobin A1c 6.2% (4.8-5.6) Magnesium Level 2.0mg/dL (1.6-2.6) White Blood Count 24.9th/mm3 (3.8-10.1) Red Blood Count 3.90mil/mm3 (3.90-5.20) Hemoglobin 10.1g/dL (12.0-15.6) Hematocrit 32.1% (35.0-46.0) Mean Corpuscular Volume 82.3fL (81-100) Mean Corpuscular Hemoglobin 25.9pg (27.0-35.0) Mean Corpuscular Hemoglobin Concent 31.5% (32.0-37.0) Red Cell Distribution Width 17.9% (12.3-15.4) Platelet Count 269bil/L (150-400) Neutrophils (%) (Auto) 88.7% (40-74) Lymphocytes (%) (Auto) 3.6% (14-46) Monocytes (%) (Auto) 4.7% (4-12) Eosinophils (%) (Auto) 0% (0-5) Basophils (%) (Auto) 0.1% (0-3) Prothrombin Time 12.5sec (8.1-12.5) Prothromb Time International Ratio 1.16ratio Sodium Level 140mEq/L (134-144) Potassium Level 3.6mEq/L (3.5-5.2) Chloride Level 103mEq/L (97-108) Carbon Dioxide Level 23mmol/L (18-29) Blood Urea Nitrogen 26mg/dL (8-27) Creatinine 0.87mg/dL (0.57-1.00) Estimat Glomerular Filtration Rate 91mL/min (>59) Glucose Level 161mg/dL (60-99) Lactic Acid Level 0.8mmol/L (0.4-2.0) Calcium Level 8.4mg/dL (8.5-10.1) Total Bilirubin 0.2mg/dL (0.0-1.2) Aspartate Amino Transf (AST/SGOT) 26U/L (0-50) Alanine Aminotransferase (ALT/SGPT) 15U/L (0-32) Alkaline Phosphatase 95U/L (25-165) Total Protein 7.0g/dL (6.4-8.4) Albumin 2.6g/dL (3.4-5.0) Procalcitonin 0.24ng/mL (0.00-0.08) Thyroid Stimulating Hormone (TSH) 0.280uIU/mL (0.450-4.500) Discharge Medications Discharge Medications Azithromycin (Zithromax) 250 Mg Tablet 500 MG PO DAILY Prescribed by: HERNAN SOLIS DO Calcium Carbonate/Vitamin D3 (Calcium 250+D Tablet) 1 Each Tablet 1 TABLET PO DAILY (Reported) Cefdinir (Cefdinir) 300 Mg Capsule 300 MG PO BID Prescribed by: HERNAN SOLIS DO Diltiazem ER (Cartia XT) 300 Mg Cap.er.24h 300 MG PO DAILY Prescribed by: QUITA QUINONES MD Ferrous Sulfate (Iron) 325 Mg Capsule.er 325 MG PO DAILY Prescribed by: QUITA QUINONES MD Flecainide Acetate (Flecainide Acetate) 100 Mg Tablet 100 MG PO Q12 Prescribed by: QUITA QUINONES MD Ipratropium [place] (Atrovent HFA) 200 Puff/12.9 Gm Inhaler 2 PUFF INH BID Prescribed by: HERNAN SOLIS DO Oxybutynin Chloride ER (Ditropan XL) 5 Mg Tab.er.24 10 MG PO DAILY Prescribed by: QUITA QUINONES MD Prednisone (PredniSONE) 20 Mg Tablet 40 MG PO DAILY Prescribed by: HERNAN SOLIS DO Risedronate (Actonel) 5 Mg Tablet 5 MG PO DAILY (Reported) Take on empty stomach, remain upright for 1 hour after taking. Saccharomyces Boulardii (Florastor) 250 Mg Capsule 250 MG PO BID Prescribed by: HERNAN SOLIS DO Tamsulosin ER (Tamsulosin ER) 0.4 Mg Cap.er.24h 0.4 MG PO HS Prescribed by: QUITA QUINONES MD Triamcinolone Acet (Triamcinolone Acetonide Cream) 1 Applic/0.25 Gm Cr 1 APPLIC EXT BID (Reported) Warfarin Sodium (Warfarin Sodium) 5 Mg Tablet 5 MG PO Q Saturday (Reported) Warfarin Sodium (Warfarin Sodium) 5 Mg Tablet 2.5 MG PO DAILY except Sat ( Reported) As needed Albuterol HFA (Proair HFA) 8.5 Gm Hfa.aer.ad 2 PUFFS INHALATION Q4H PRN PRN For Shortness of Breath Prescribed by: HERNAN SOLIS DO Docusate Sodium (Colace) 100 Mg Capsule 100 MG PO Q2DAY PRN PRN For Constipation (Reported) oxyCODONE (oxyCODONE) 5 Mg Tablet 5-10 MG PO Q4H PRN PRN For Pain Prescribed by: QUITA QUINONES MD Additional med instructions Included his prescriptions for prednisone, azithromycin, Cefdinir. Please take all these medications to completion as directed. You have also been given a prescription for probiotic please take this medication as you are on several antibiotics which will kill off for a predisposing you to possible infectious diarrhea You have been given a prescription for an ipratropium inhaler please take this medication twice daily for the next month. Also included his a prescription for refill on her albuterol inhaler please take this medication for shortness of breath as directed. Please continue to take all of her regular home medications as directed by her primary care provider. Followup Plan Disposition: Home Follow-up plan Please follow up with her primary care provider later this week. The appointment has already been scheduled. Discharge Diet: Low fat, Low Sodium Discharge Activity: No restrictions Patient Instructions Please take all of her medications as directed. If you feel like her symptoms are not improving or if you are worsening at all with new return of fevers and chills worsening cough please be evaluated by a medical professional. Follow-up Provider: Omayra Willis DO Follow-up with PCP in: 1 week Time spent Greater than 30 minutes was spent in preparation of discharge with greater than 50% of that time dedicated to patient counseling and coordination of care. . Attending Statement The patient was seen and examined together with Dr. Solis on 12/25/2016 and I agree with the history, exam and plan as outlined in the note above. . copies to: [facility] Hernan Solis DO Dec 25, 2016 14:15 Tin Dawson MD Dec 29, 2016 07:50
--- NOTE | 2016-12-25 15:41 | NUR ---
Discharge Pt discharged for transportation by her son POV to her home. Pt's IV dc'd intact, telemetry removed and tech notified. Pt's discharge instructions, follow-up appointments and new medications were reviewed. All patient's questions were answered and pt voiced understanding. Pt's belongings were gathered for discharge to be sent home with her. Pt was escorted off unit to her son's vehicle.
== END 2016-12-25 14:22 | disposition home or self-care (01) | DRG 189 ==
LOC: SED 18:13 → PCC 21:26
PROVIDERS: ADMIT Internal Medicine; ATTEND Internal Medicine
PROC: 4A033B1 Measurement of Arterial Pressure, Peripheral, Percutaneous Approach (ICD-10-PCS; principal; 2016-12-23)
DX: J96.01 Acute respiratory failure with hypoxia (principal); J18.9 Pneumonia, unspecified organism; J44.1 Chronic obstructive pulmonary disease with (acute) exacerbation; I42.8 Other cardiomyopathies; J96.02 Acute respiratory failure with hypercapnia; J44.9 Chronic obstructive pulmonary disease, unspecified; I10 Essential (primary) hypertension; I48.0 Paroxysmal atrial fibrillation; M06.9 Rheumatoid arthritis, unspecified; F17.210 Nicotine dependence, cigarettes, uncomplicated; G47.30 Sleep apnea, unspecified; D50.9 Iron deficiency anemia, unspecified; Z88.0 Allergy status to penicillin; Z79.01 Long term (current) use of anticoagulants; Z95.0 Presence of cardiac pacemaker; Z99.81 Dependence on supplemental oxygen; Z79.51 Long term (current) use of inhaled steroids